=== PATIENT | male | born 1945 | race Hispanic/Latino ===

== ENCOUNTER 2017-12-25 09:30 | Inpatient (IN) | payer OTHER ==
[~2017-12-25] VITALS: Ht 175.3 cm; Wt 81.3 kg
[2017-12-25 15:20] LABS: BASOPHILS % (AUTO) 0.6 % (0.0-5.0); EOSINOPHILS % (AUTO) 2.6 % (0.0-8.0); HEMATOCRIT 37.5 % (42-54); LYMPHOCYTES % (AUTO) 19.5 % (21.0-51.0); MEAN CORPUSCULAR HEMOGLOBIN 32.1 pg (27.0-33.0); MEAN CORPUSCULAR VOLUME 91.8 fL (79-99); MONOCYTES % (AUTO) 7.9 % (3.0-13.0); NEUTROPHILS % (AUTO) 69.4 % (40.0-77.0); PLATELET COUNT (AUTO) 140 K/uL (130-400); RED BLOOD CELL COUNT(AUTO) 4.09 MIL/uL (4.50-6.20); RED CELL DISTRIBUTION WIDTH 13.5 % (11.0-15.5); WHITE BLOOD COUNT (AUTO) 5.8 K/uL (4.8-10.8)
[2017-12-25 15:33] LABS: ALBUMIN 3.3 g/dL (3.5-5.0); BILIRUBIN,TOTAL 0.4 mg/dL (0.2-1.0); CREATININE 1.7 mg/dL (0.5-1.5); POTASSIUM 4.9 mmol/L (3.5-5.1); TOTAL PROTEIN, SERUM 7.1 g/dL (6.0-8.3)
[2017-12-25 15:36] VITALS: BP 121/74
[2017-12-25] MEDS ORDERED: ASPI-1181 PO (15:47)
[2017-12-25] MEDS ORDERED: LEVOTHYROXINE PO (15:47)
[2017-12-25] MEDS ORDERED: LISI-613 PO (15:47)
[2017-12-25] MEDS ORDERED: TICA60TA PO (15:47)
[2017-12-25] MEDS ORDERED: CHOL500050 PO (15:47)
[2017-12-25] MEDS ORDERED: BUPR-47 PO (15:47)
[2017-12-25] MEDS ORDERED: NORT25CA3 PO (15:47)
[2017-12-25] MEDS ORDERED: METO50TA18 PO (15:47)
[2017-12-25] MEDS ORDERED: VITA1CAP85 PO (15:47)
[2017-12-25] MEDS ORDERED: DONE5TAB33 PO (15:47)
[2017-12-25] MEDS ORDERED: CYAN100084 PO (15:47)
[2017-12-25] MEDS ORDERED: BUPR150T8 PO (15:47)
[2017-12-25] MEDS ORDERED: GABA-318 PO (15:47)
[2017-12-25] MEDS ORDERED: VITA100049 PO (15:47)
[2017-12-25] MEDS ORDERED: SIMV80TA7 PO (15:47)
[2017-12-25 15:51] LABS: PARTIAL THROMBOPLASTIN TIME 26.9 SEC (26.3-35.5); PROTHROMBIN TIME 10.5 SEC (9.6-11.6)
[2017-12-25 16:24] LABS: HEMOGLOBIN A1C 5.8 % (4.0-6.0)
[2017-12-27] VITALS (27 sets, daily range): BP systolic 85–168; BP diastolic 58–97
[2017-12-27] MEDS ORDERED: PAPAVERINE HCL 30 MG/ML 2ML VIAL ONE (06:27)
[2017-12-27] MEDS ORDERED: OCTYL 2-CYANOACRYLATE 1 EACH TP ONE (06:27)
[2017-12-27] MEDS ORDERED: BACITRACIN 50,000 UNIT VIAL ONE (06:28)
[2017-12-27] MEDS ORDERED: SODIUM CHLORIDE 0.9% 1000ML 1,000 ML IV ONE ×2 (06:48→09:30)
[2017-12-27] MEDS: CEFUROXIME SODIUM 1.5 GM VIAL ONE ×2 (07:05→08:00)
[2017-12-27] MEDS ORDERED: SODIUM BICARB 50MEQ 50ML VIAL ONE ×3 (07:05→11:16)
[2017-12-27] MEDS ORDERED: NITROGLYCERIN 50 MG/D5% WATER 1 BOT ONE (07:07)
[2017-12-27] MEDS ORDERED: AMIODARONE HCL 50 MG/ML 3 ML VIAL ONE (07:07)
[2017-12-27] MEDS ORDERED: GLYCOPYRROLATE 0.2 MG/ML 5 ML VIAL ONE (07:45)
[2017-12-27] MEDS ORDERED: ROCURONIUM BROMIDE 10MG/1ML 5ML VL ONE ×2 (07:45→10:14)
[2017-12-27] MEDS ORDERED: PROTAMINE SULFATE 10 MG/ML 25ML VIAL IV ONE (07:45)
[2017-12-27] MEDS ORDERED: HEPARIN SODIUM 1000UNIT/ML 10ML VIAL ONE ×2 (07:45→08:23)
[2017-12-27] MEDS ORDERED: MILRINONE-D5W 20 MG/100 ML 0 ML IV ONE (07:45)
[2017-12-27] MEDS ORDERED: EPINEPHRINE 1 MG/ML AMPULE ONE (07:45)
[2017-12-27] MEDS ORDERED: PROPOFOL 10 MG/ML 20ML VIAL IV ONE (07:45)
[2017-12-27] MEDS ORDERED: NOREPINEPHRINE BITARTRATE 1 MG/1 ML ML IV ONE (07:45)
[2017-12-27] MEDS ORDERED: ESMOLOL HCL 10 MG/ML 10 ML VIAL ONE (07:45)
[2017-12-27] MEDS ORDERED: AMINOCAPROIC ACID 250 MG/ML 20 ML VIAL IV ONE (07:45)
[2017-12-27] MEDS ORDERED: LIDOCAINE PF 2% 5ML ABBOJECT ONE (07:45)
[2017-12-27] MEDS ORDERED: MIDAZOLAM HCL 1 MG/ML 5ML VIAL ONE (07:46)
[2017-12-27] MEDS ORDERED: FENTANYL CITRATE PF 50 MCG/1 ML 5ML AMP IV ONE ×2 (08:06)
[2017-12-27 08:20] LABS: ABG BASE EXCESS -2.8 mmol/L (-2.0-3.0); ABG HCO3 20.9 mmol/L (21.0-28.0); ABG OXYGEN SATURATION 99.3 % (95.0-99.0); ABG PCO2 33 mmHg (35-48)
[2017-12-27] MEDS ORDERED: THROMBIN-JMI 5000 UNIT/VIAL TP ONE (08:24)
[2017-12-27] MEDS ORDERED: SODIUM CHLORIDE 0.9% 500ML 500 ML IV SCH (10:07)
[2017-12-27] MEDS ORDERED: SODIUM CHLORIDE 0.9% 1000ML 1,000 ML IV SCH (10:15)
[2017-12-27] MEDS ORDERED: SODIUM CHLORIDE 0.9% 10 ML VIAL IVP PRN (10:15)
[2017-12-27] MEDS ORDERED: PROPOFOL 1000 MG/100 ML 100 ML IV PRN (10:15)
[2017-12-27] MEDS ORDERED: POTASSIUM CHLORIDE 20MEQ/100ML 100 ML IV PRN (10:15)
[2017-12-27] MEDS ORDERED: ACETAMINOPHEN 650 MG SUPPOSITORY RC PRN (10:15)
[2017-12-27] MEDS ORDERED: SODIUM BICARB 8.4% 50ML SYRINGE IV PRN (10:15)
[2017-12-27] MEDS ORDERED: SODIUM CHLORIDE 0.9% 250 ML IV PRN (10:15)
[2017-12-27] MEDS ORDERED: MORPHINE SULFATE 2 MG/ML 1ML SYG IV PRN (10:15)
[2017-12-27] MEDS ORDERED: CALCIUM GLUCONATE 1 GM in SODIUM CHLORIDE 0.9% 50 ML IV PRN (10:15)
[2017-12-27] MEDS ORDERED: ALBUMIN (HUMAN) 5% 250 ML IV PRN (10:15)
[2017-12-27] MEDS ORDERED: EPINEPHRINE 2 MG in SODIUM CHLORIDE 0.9% 250 ML IV PRN (10:15)
[2017-12-27] MEDS ORDERED: ONDANSETRON HCL MDV 20ML 2 MG/ML VIAL IV PRN (10:15)
[2017-12-27] MEDS ORDERED: HYDROCODONE/ACETAMINOPHEN 5/325 MG TAB PO PRN (10:15)
[2017-12-27] MEDS ORDERED: NITROGLYCERIN 50 MG/D5% WATER 250 BOT IV SCH (10:15)
[2017-12-27] MEDS ORDERED: DEXTROSE 50%-WATER 50 ML DISP.SYRIN IV PRN (10:15)
[2017-12-27] MEDS ORDERED: NOREPINEPHRINE 4MG/NS 250ML 250 ML IV PRN (10:15)
[2017-12-27] MEDS ORDERED: POTASSIUM PHOS 15 mMOL+NS250ML 250 ML IV PRN (10:15)
[2017-12-27] MEDS ORDERED: GLUCAGON 1MG KIT 1 MG ML IM PRN (10:15)
[2017-12-27] MEDS ORDERED: INSULIN REGULAR, HUMAN 3ML 100 UNIT in SODIUM CHLORIDE 0.9% 99 ML IV SCH ×2 (10:15)
[2017-12-27] MEDS ORDERED: MAGNESIUM 2GM PREMIX 50ML 50 ML IV PRN (10:15)
[2017-12-27] MEDS ORDERED: AMINOCAPROIC ACID 15,000 MG in SODIUM CHLORIDE 0.9% 250 ML IV SCH (10:15)
[2017-12-27] MEDS ORDERED: NICARDIPINE HCL 100 MG in SODIUM CHLORIDE 0.9% 100 ML IV PRN (10:15)
[2017-12-27 10:26] LABS: ABG BASE EXCESS -2.8 mmol/L (-2.0-3.0); ABG HCO3 21.3 mmol/L (21.0-28.0); ABG PCO2 35 mmHg (35-48)
[2017-12-27 11:02] LABS: ABG BASE EXCESS -4.4 mmol/L (-2.0-3.0); ABG HCO3 20.9 mmol/L (21.0-28.0); ABG OXYGEN SATURATION 98.2 % (95.0-99.0); ABG PCO2 39 mmHg (35-48)
[2017-12-27] MEDS: MORPHINE SULFATE 4 MG/1ML SYG IV PRN ×2 (11:12→12:50)
[2017-12-27 11:16] LABS: HEMATOCRIT 33.4 % (42-54); MEAN CORPUSCULAR HEMOGLOBIN 32.6 pg (27.0-33.0); MEAN CORPUSCULAR HGB CONC 35.9 g/dL (32.0-36.0); MEAN CORPUSCULAR VOLUME 90.8 fL (79-99); PLATELET COUNT (AUTO) 145 K/uL (130-400); RED BLOOD CELL COUNT(AUTO) 3.68 MIL/uL (4.50-6.20); RED CELL DISTRIBUTION WIDTH 13.8 % (11.0-15.5)
[2017-12-27 11:24] LABS: CREATININE 1.4 mg/dL (0.5-1.5); MAGNESIUM 1.6 mg/dL (1.80-2.40); PHOSPHORUS 3.5 mg/dL (2.5-4.9); POTASSIUM 4.6 mmol/L (3.5-5.1)
[2017-12-27] MEDS ORDERED: EPINEPHRINE 8 MG in SODIUM CHLORIDE 0.9% 250 ML IV PRN (12:30)
[2017-12-27 13:06] LABS: ABG BASE EXCESS 1.3 mmol/L (-2.0-3.0); ABG HCO3 22.6 mmol/L (21.0-28.0); ABG OXYGEN SATURATION 99.1 % (95.0-99.0); ABG PCO2 27 mmHg (35-48)
[2017-12-27] MEDS: HYDROCODONE/ACETAMINOPHEN 5/325 MG TAB PO PRN ×3 (15:24→23:57)
[2017-12-27] MEDS: CEFUROXIME SODIUM 1.5 GM VIAL IVP SCH (17:37)
[2017-12-27] MEDS ORDERED: CEFUROXIME 1.5GM+NS 100ML 100 ML IV SCH (18:15)
[2017-12-28] VITALS (25 sets, daily range): BP systolic 78–156; BP diastolic 39–86
[2017-12-28 04:09] LABS: HEMATOCRIT 32.6 % (42-54); MEAN CORPUSCULAR HEMOGLOBIN 31.2 pg (27.0-33.0); MEAN CORPUSCULAR HGB CONC 34.6 g/dL (32.0-36.0); MEAN CORPUSCULAR VOLUME 90.1 fL (79-99); PLATELET COUNT (AUTO) 121 K/uL (130-400); RED BLOOD CELL COUNT(AUTO) 3.62 MIL/uL (4.50-6.20); RED CELL DISTRIBUTION WIDTH 14.1 % (11.0-15.5); WHITE BLOOD COUNT (AUTO) 11.7 K/uL (4.8-10.8)
[2017-12-28] MEDS: HYDROCODONE/ACETAMINOPHEN 5/325 MG TAB PO PRN ×2 (04:13→07:58)
[2017-12-28 04:29] LABS: CREATININE 1.2 mg/dL (0.5-1.5); MAGNESIUM 2.1 mg/dL (1.80-2.40); PHOSPHORUS 3.5 mg/dL (2.5-4.9)
[2017-12-28] MEDS: CEFUROXIME SODIUM 1.5 GM VIAL IVP SCH ×2 (05:38→17:26)
[2017-12-28] MEDS: PANTOPRAZOLE SODIUM 40 MG TABLET.DR PO SCH (07:58)
[2017-12-28] MEDS ORDERED: BUPROPION HCL 150 MG TABLET.SA PO SCH (09:00)
[2017-12-28] MEDS: GABAPENTIN 300 MG CAPSULE PO SCH ×3 (09:34→20:19)
[2017-12-28] MEDS: DONEPEZIL HCL 5 MG TAB PO SCH (09:34)
[2017-12-28] MEDS ORDERED: BUPROPRION 150 MG PO SCH (12:00)
[2017-12-28] MEDS: ASPIRIN 81MG TAB.CHEW PO SCH (12:58)
[2017-12-28] MEDS: METOPROLOL TARTRATE 25 MG TAB PO SCH (20:19)
[2017-12-28] MEDS: ATORVASTATIN CALCIUM 40 MG TABLET PO SCH (20:19)
[2017-12-28] MEDS: LEVOTHYROXINE 50 MCG TABLET PO SCH (20:19)
[2017-12-28] MEDS: NORTRIPTYLINE 25 MG PO SCH (20:20)
[2017-12-28] MEDS: INSULIN HUMULIN R 100 UNIT/ML 3ML SQ SCH (21:00)
[2017-12-29] VITALS (17 sets, daily range): BP systolic 103–153; BP diastolic 57–94
[2017-12-29 04:38] LABS: HEMATOCRIT 31.3 % (42-54); MEAN CORPUSCULAR HEMOGLOBIN 32.8 pg (27.0-33.0); MEAN CORPUSCULAR HGB CONC 35.8 g/dL (32.0-36.0); MEAN CORPUSCULAR VOLUME 91.5 fL (79-99); PLATELET COUNT (AUTO) 94 K/uL (130-400); RED BLOOD CELL COUNT(AUTO) 3.43 MIL/uL (4.50-6.20); RED CELL DISTRIBUTION WIDTH 13.6 % (11.0-15.5); WHITE BLOOD COUNT (AUTO) 9.7 K/uL (4.8-10.8)
[2017-12-29 04:45] LABS: CREATININE 1.1 mg/dL (0.5-1.5); POTASSIUM 4.1 mmol/L (3.5-5.1)
[2017-12-29] MEDS: HYDROCODONE/ACETAMINOPHEN 5/325 MG TAB PO PRN (05:40)
[2017-12-29] MEDS: INSULIN HUMULIN R 100 UNIT/ML 3ML SQ SCH ×4 (06:08→21:00)
[2017-12-29] MEDS ORDERED: LEVOTHYROXINE 125 MCG TABLET PO SCH (06:30)
[2017-12-29] MEDS: BUPROPION HCL 150 MG TABLET.SA PO SCH ×2 (08:20→13:02)
[2017-12-29] MEDS: VITAMIN E 400 UNIT CAPSULE PO SCH (08:21)
[2017-12-29] MEDS: DONEPEZIL HCL 5 MG TAB PO SCH (08:21)
[2017-12-29] MEDS: LEVOTHYROXINE 50 MCG TABLET PO SCH ×2 (08:21→20:54)
[2017-12-29] MEDS: METOPROLOL TARTRATE 25 MG TAB PO SCH ×2 (08:21→20:54)
[2017-12-29] MEDS: ASPIRIN 81MG TAB.CHEW PO SCH (08:21)
[2017-12-29] MEDS: VITAMIN B COMPLEX 1 CAPSULE PO SCH (08:21)
[2017-12-29] MEDS: GABAPENTIN 300 MG CAPSULE PO SCH ×3 (08:21→20:54)
[2017-12-29] MEDS: PANTOPRAZOLE SODIUM 40 MG TABLET.DR PO SCH (08:21)
[2017-12-29] MEDS: FUROSEMIDE 20 MG TABLET PO SCH ×2 (08:21→16:29)
[2017-12-29] MEDS: CYANOCOBALAMIN (VITAMIN B-12) 1,000 MCG TABLET PO SCH (08:21)
[2017-12-29] MEDS ORDERED: ERGOCALCIFEROL (VITAMIN D2) 50,000 UNIT CAPSULE PO SCH (09:00)
[2017-12-29] MEDS ORDERED: LISINOPRIL 10 MG TABLET PO SCH (09:00)
[2017-12-29] MEDS: ACETAMINOPHEN 325 MG TAB PO PRN (15:53)
[2017-12-29] MEDS: ATORVASTATIN CALCIUM 40 MG TABLET PO SCH (20:53)
[2017-12-29] MEDS: NORTRIPTYLINE 25 MG PO SCH (21:00)
[2017-12-30 03:49] VITALS: BP 126/71
[2017-12-30 04:37] LABS: HEMATOCRIT 33.9 % (42-54); MEAN CORPUSCULAR HEMOGLOBIN 31.4 pg (27.0-33.0); MEAN CORPUSCULAR HGB CONC 34.6 g/dL (32.0-36.0); MEAN CORPUSCULAR VOLUME 90.8 fL (79-99); PLATELET COUNT (AUTO) 109 K/uL (130-400); RED BLOOD CELL COUNT(AUTO) 3.73 MIL/uL (4.50-6.20); RED CELL DISTRIBUTION WIDTH 13.9 % (11.0-15.5); WHITE BLOOD COUNT (AUTO) 8.5 K/uL (4.8-10.8)
[2017-12-30 04:49] LABS: CREATININE 1.2 mg/dL (0.5-1.5)
[2017-12-30] MEDS: INSULIN HUMULIN R 100 UNIT/ML 3ML SQ SCH ×4 (06:03→21:00)
[2017-12-30 07:31] VITALS: BP 107/59
[2017-12-30] MEDS: BUPROPION HCL 150 MG TABLET.SA PO SCH ×2 (10:00→12:19)
[2017-12-30] MEDS: GABAPENTIN 300 MG CAPSULE PO SCH ×3 (10:01→20:36)
[2017-12-30] MEDS: VITAMIN B COMPLEX 1 CAPSULE PO SCH (10:01)
[2017-12-30] MEDS: VITAMIN E 400 UNIT CAPSULE PO SCH (10:01)
[2017-12-30] MEDS: LEVOTHYROXINE 50 MCG TABLET PO SCH ×2 (10:01→20:36)
[2017-12-30] MEDS: METOPROLOL TARTRATE 25 MG TAB PO SCH ×2 (10:02→20:36)
[2017-12-30] MEDS: PANTOPRAZOLE SODIUM 40 MG TABLET.DR PO SCH (10:02)
[2017-12-30] MEDS: ASPIRIN 81MG TAB.CHEW PO SCH (10:02)
[2017-12-30] MEDS: FUROSEMIDE 20 MG TABLET PO SCH ×2 (10:02→16:24)
[2017-12-30] MEDS: CYANOCOBALAMIN (VITAMIN B-12) 1,000 MCG TABLET PO SCH (10:02)
[2017-12-30] MEDS: DONEPEZIL HCL 5 MG TAB PO SCH (10:02)
[2017-12-30] MEDS: ENOXAPARIN SODIUM 40 MG/0.4 ML SYRINGE SQ SCH (10:03)
[2017-12-30] MEDS: HYDROCODONE/ACETAMINOPHEN 5/325 MG TAB PO PRN (10:04)
[2017-12-30 11:48] VITALS: BP 104/56
[2017-12-30] MEDS ORDERED: TRAMADOL HCL 50 MG TABLET PO PRN (16:00)
[2017-12-30] MEDS ORDERED: MAGNESIUM CITRATE 296 ML SOLUTION PO SCH (16:30)
[2017-12-30 19:00] VITALS: BP 141/77
[2017-12-30] MEDS: ATORVASTATIN CALCIUM 40 MG TABLET PO SCH (20:35)
[2017-12-30] MEDS: TICAGRELOR 60 MG PO SCH (21:00)
[2017-12-30] MEDS: NORTRIPTYLINE 25 MG PO SCH (21:00)
[2017-12-30 23:00] VITALS: BP 152/88
[2017-12-31 03:00] VITALS: BP 135/76
[2017-12-31] MEDS: ACETAMINOPHEN 325 MG TAB PO PRN (03:34)
[2017-12-31] MEDS: INSULIN HUMULIN R 100 UNIT/ML 3ML SQ SCH ×2 (06:06→10:52)
[2017-12-31 07:00] VITALS: BP 140/81
[2017-12-31] MEDS: CYANOCOBALAMIN (VITAMIN B-12) 1,000 MCG TABLET PO SCH (08:07)
[2017-12-31] MEDS: GABAPENTIN 300 MG CAPSULE PO SCH (08:07)
[2017-12-31] MEDS: ASPIRIN 81MG TAB.CHEW PO SCH (08:07)
[2017-12-31] MEDS: DONEPEZIL HCL 5 MG TAB PO SCH (08:07)
[2017-12-31] MEDS: VITAMIN B COMPLEX 1 CAPSULE PO SCH (08:07)
[2017-12-31] MEDS: LEVOTHYROXINE 50 MCG TABLET PO SCH (08:07)
[2017-12-31] MEDS: FUROSEMIDE 20 MG TABLET PO SCH (08:07)
[2017-12-31] MEDS: BUPROPION HCL 150 MG TABLET.SA PO SCH ×2 (08:07→12:13)
[2017-12-31] MEDS: VITAMIN E 400 UNIT CAPSULE PO SCH (08:07)
[2017-12-31] MEDS: PANTOPRAZOLE SODIUM 40 MG TABLET.DR PO SCH (08:08)
[2017-12-31] MEDS: ENOXAPARIN SODIUM 40 MG/0.4 ML SYRINGE SQ SCH (08:08)
[2017-12-31] MEDS: METOPROLOL TARTRATE 25 MG TAB PO SCH (08:08)
[2017-12-31] MEDS ORDERED: METO25 PO (08:26)
[2017-12-31] MEDS ORDERED: ACET1TAB12 PO (08:26)
[2017-12-31] MEDS: TICAGRELOR 60 MG PO SCH (09:00)
[2017-12-31 11:00] VITALS: BP 106/67
== END 2017-12-31 13:43 | disposition home or self-care (01) | DRG 236 ==
LOC: EEVIPCON 12-27 06:03 → DAHIP 12-27 06:03 → 2CV 12-27 09:08 → 2CH 12-28 04:52 → 2DH 12-29 17:09
PROVIDERS: ADMIT Thoracic Surgery (Cardiothoracic Vascular Surgery); ATTEND Thoracic Surgery (Cardiothoracic Vascular Surgery)
PROC: 5A1935Z Respiratory Ventilation, Less than 24 Consecutive Hours (ICD-10-PCS; 2017-12-27)
PROC: 0BH17EZ Insertion of Endotracheal Airway into Trachea, Via Natural or Artificial Opening (ICD-10-PCS; 2017-12-27)
PROC: 02100Z9 Bypass Coronary Artery, One Artery from Left Internal Mammary, Open Approach (ICD-10-PCS; principal; 2017-12-27 07:45)
PROC: 021009W Bypass Coronary Artery, One Artery from Aorta with Autologous Venous Tissue, Open Approach (ICD-10-PCS; 2017-12-27 07:45)
PROC: 06BQ4ZZ Excision of Left Saphenous Vein, Percutaneous Endoscopic Approach (ICD-10-PCS; 2017-12-27 07:45)
DX: I25.10 Atherosclerotic heart disease of native coronary artery without angina pectoris (principal); D69.6 Thrombocytopenia, unspecified; E11.42 Type 2 diabetes mellitus with diabetic polyneuropathy; E03.9 Hypothyroidism, unspecified; E78.5 Hyperlipidemia, unspecified; E83.42 Hypomagnesemia; F03.90 Unspecified dementia, unspecified severity, without behavioral disturbance, psychotic disturbance, mood disturbance, and anxiety; F32.9 Major depressive disorder, single episode, unspecified; G47.30 Sleep apnea, unspecified; I10 Essential (primary) hypertension; K21.9 Gastro-esophageal reflux disease without esophagitis; Z79.899 Other long term (current) drug therapy; Z98.61 Coronary angioplasty status
CPT/HCPCS: 36415; 36600; 71045; 71046; 80048; 80053; 80061; 82330; 82435; 82803; 82947; 82948; 83036; 83605; 83735; 84100; 84132; 84295; 85018; 85025; 85027; 85347; 85610; 85730; 86850; 86900; 86901; 86922; 93005; 93306; 93880; 94002; 94010; 94150; A4218; A7048; J0171; J0282; J0697; J1644; J1650; J1815; J2001; J2250; J2260; J2270; J2440; J2704; J2720; J3010; J3475; J3480; J3490; J7030; J7040

== ENCOUNTER → 2018-01-03 | Outpatient (CLI) | payer MEDICARE, OTHER ==
[~2018-01-03] MED LIST: ACET1TAB12 PO; ASPI-1181 PO; BUPR-47 PO; BUPR150T8 PO; CHOL500050 PO; CYAN100084 PO; DONE5TAB33 PO; GABA-318 PO; LEVOTHYROXINE PO; LISI-613 PO; METO25 PO; NORT25CA3 PO; SIMV80TA7 PO; VITA100049 PO; VITA1CAP85 PO
== END | disposition home or self-care (01) ==
LOC: RAH 15:03
PROVIDERS: ATTEND Internal Medicine
DX: M47.895 Other spondylosis, thoracolumbar region (principal); J98.11 Atelectasis
CPT/HCPCS: 71046

== ENCOUNTER → 2024-11-07 | Outpatient (CLI) | payer OTHER ==
[~2024-11-07] MED LIST changes: -ASPI-1181 PO; +ASPI-1443 PO; +BUPR-113 PO; -BUPR-47 PO; +BUPR-49 PO; -BUPR150T8 PO; +GABA-1405 PO; -GABA-318 PO; -LISI-613 PO; +LISI20TA24 PO; -SIMV80TA7 PO; +SIMV80TA91 PO; -VITA100049 PO; +VITA100059 PO
--- NOTE | 2024-11-07 15:11 | HMCIMG ---
MR SPINAL CANAL, THORAC WO CON HISTORY: Pain COMPARISON: None TECHNIQUE: MRI of the thoracic spine was performed utilizing multiple pulse sequences in axial, coronal and sagittal plane. Patient was not given contrast through intravenous route. FINDINGS: There is dextroscoliosis. No abnormal signal intensity is seen of the visualized bony structure. No loss of vertebral height is seen. Degenerative disc signals are present at all thoracic spine levels. The thoracic cord is of normal signal intensity without cord compression or impingement. At the T6-T7 level, there is 7.4 x 6.6 mm center disc herniation causing anterior CSF space effacement with bilateral lateral recess stenosis without associated neural foraminal stenosis. The central canal measures approximately 5.2 mm in its anterior posterior dimension. At the T9-T10 level, there is spondylotic disc with bilateral ligamentum flavum hypertrophy causing anterior CSF space effacement with bilateral lateral recess stenosis without associated neural foraminal stenosis. The central canal measures approximately 6.1 mm in its anterior posterior dimension. At the T10-T11 level, there is spondylotic disc with annular disc bulge causing anterior CSF space effacement with bilateral lateral recess stenosis and bilateral neural foraminal stenosis. The central canal measures approximately 4.9 mm in its anterior posterior dimension. At the T11-T12 level, there is spondylotic with annular disc bulge and bilateral ligamentum flavum hypertrophy causing anterior CSF space effacement with bilateral lateral recess stenosis and bilateral neural foraminal stenosis. The central canal measures approximately 6.3 mm in its anterior posterior dimension. At the T12-L1 level, there is spondylotic disc with central disc protrusion causing anterior CSF space effacement with bilateral lateral recess stenosis and minimal bilateral neural foraminal stenosis. The central canal measures approximately 7.5 mm in its anterior posterior dimension. IMPRESSION: 1. Mild degenerative changes and spondylosis as described above.
--- NOTE | 2024-11-07 15:56 | HMCIMG ---
MR SPINAL CANAL, LUMBAR WO CON HISTORY: No additional history given. COMPARISON: None TECHNIQUE: MRI of the lumbar spine was performed utilizing multiple pulse sequences in axial , coronal and sagittal plane. Patient was not given contrast through intravenous route. FINDINGS: Paramagnetic susceptibility artifacts are noted involving L2-L5 levels due to orthopedic fixation device with plate and screw. This is limiting evaluation. No abnormal signal intensity is seen of the visualized bony structure. No loss of vertebral height is seen. There is straightening of normal lumbar curvature which may be related to muscle spasm or positioning. Degenerative disc signals are present at all lumbar spine levels. Visualized distal conus is unremarkable. At the T12-L1 level, there is spondylotic disc with disc protrusion causing anterior thecal sac compression with bilateral lateral recess stenosis and bilateral neural foraminal stenosis. The thecal sac measures approximately 7.8 mm in its anterior posterior dimension. At the L1-L2 level, there is spondylotic disc with central disc protrusion causing anterior thecal sac compression with bilateral lateral recess stenosis and bilateral neural foraminal stenosis. The thecal sac measures approximately 6.4 mm in its anterior posterior dimension. Postlaminectomy changes are seen at L2-3, L3-4, L4-5 and L5-S1 levels with artifacts limiting evaluation. IMPRESSION: 1. Central canal narrowing at T12-L1 and L1-L2 levels. Laminectomy changes with artifacts at L2-3 through L5-S1 levels.
== END | disposition home or self-care (01) ==
LOC: RAH 13:29
PROVIDERS: ATTEND Neurological Surgery
DX: M47.25 Other spondylosis with radiculopathy, thoracolumbar region (principal); M48.05 Spinal stenosis, thoracolumbar region; M51.15 Intervertebral disc disorders with radiculopathy, thoracolumbar region; M51.362 Other intervertebral disc degeneration, lumbar region with discogenic back pain and lower extremity pain; M41.84 Other forms of scoliosis, thoracic region; M96.1 Postlaminectomy syndrome, not elsewhere classified
CPT/HCPCS: 72146; 72148

== ENCOUNTER 2025-08-11 11:30 | Day surgery (SDC) | payer OTHER ==
[2025-08-11] VITALS (11 sets, daily range): BP systolic 117–139; BP diastolic 73–83; PULSE 80–92; RESP 15–18; TEMP 97.2–97.9
[~2025-08-11] VITALS: Ht 172.7 cm; Wt 69.4 kg
[2025-08-11] MEDS ORDERED: CETI10TA87 PO (12:14)
[2025-08-11] MEDS ORDERED: BENZ-39 PO (12:14)
[2025-08-11] MEDS ORDERED: APIX5TAB PO (12:14)
[2025-08-11] MEDS ORDERED: ALBU18HF7 IH (12:14)
[2025-08-11] MEDS ORDERED: [UNRECOGNIZED DRUG - CODE] PO (12:14)
[2025-08-11] MEDS ORDERED: EZET10TA80 PO (12:14)
[2025-08-11] MEDS ORDERED: ROSU40TA88 PO (12:15)
[2025-08-11] MEDS ORDERED: NORT50CA PO (12:15)
[2025-08-11] MEDS ORDERED: PANT40TA54 PO (12:15)
[2025-08-11] MEDS ORDERED: LEVO50CA5 PO (12:17)
[2025-08-11] MEDS: 0.9%NACL 1000ML 1,000 ML IV ONE (12:26)
== END 2025-08-11 14:46 | disposition home or self-care (01) ==
LOC: DAH 11:30 → ENDO 11:30
PROVIDERS: ATTEND Internal Medicine Gastroenterology
DX: D50.9 Iron deficiency anemia, unspecified (principal); K29.50 Unspecified chronic gastritis without bleeding; K21.00 Gastro-esophageal reflux disease with esophagitis, without bleeding; K22.11 Ulcer of esophagus with bleeding; I25.10 Atherosclerotic heart disease of native coronary artery without angina pectoris; I12.9 Hypertensive chronic kidney disease with stage 1 through stage 4 chronic kidney disease, or unspecified chronic kidney disease; N18.9 Chronic kidney disease, unspecified; E03.9 Hypothyroidism, unspecified; E78.5 Hyperlipidemia, unspecified; J44.9 Chronic obstructive pulmonary disease, unspecified; Z79.02 Long term (current) use of antithrombotics/antiplatelets; Z86.73 Personal history of transient ischemic attack (TIA), and cerebral infarction without residual deficits; Z79.899 Other long term (current) drug therapy; Z83.3 Family history of diabetes mellitus; Z82.49 Family history of ischemic heart disease and other diseases of the circulatory system; Z98.890 Other specified postprocedural states
CPT/HCPCS: 82948; 43239; J7030; J2704; 88305; 88312; J3490